=== PATIENT | male | born 1930 | race Caucasian/White ===

== ENCOUNTER → 2018-12-10 | Outpatient (CLI) | payer MEDICARE ==
--- NOTE | 2018-12-10 11:47 | XR ---
Abdomen HISTORY: Kidney stones Frontal view of the abdomen submitted on 2 images and correlated to prior abdomen 02/09/2015 Calcification in left paraspinal location is noted at approximately L3 measuring approximately 14 mm. Overlying bowel gas may obscure detail. Possible punctate left-sided nephrolithiasis and right-sided nephrolithiasis, smaller stones are present overlying the kidneys as compared to prior. At least 2 c alcifications suspected on the left and a single on the right the lower pole levels measuring only ap proximately 2 to 3 mm. Probable vascular calcifications noted within the pelvis. Lamellated calcifica tion present in the right upper quadrant is compatible with gallstone. Postop changes noted to the ri ght hip. There is extensive heterotopic new bone formation which may limit range of motion of the rig ht hip. Degenerative disc changes are noted in the visualized spine. IMPRESSION: Cholelithiasis. Bilateral nephrolithiasis. Additional findings above.
== END | disposition home or self-care (01) ==
LOC: RADXRMAIN 10:36
PROVIDERS: ATTEND Urology
DX: N20.0 Calculus of kidney (principal); K80.20 Calculus of gallbladder without cholecystitis without obstruction
CPT/HCPCS: 74018

== ENCOUNTER → 2019-04-01 | Outpatient (CLI) | payer MEDICARE ==
--- NOTE | 2019-04-01 13:53 | US ---
EXAMINATION TYPE: US kidneys/renal and bladder DATE OF EXAM: 04/01/2019 COMPARISON: CLINICAL HISTORY: N20.1 Calculus of ureter. Hx left renal stone removal x 3-4 weeks ago. No pain at this time. EXAM MEASUREMENTS: Right Kidney: 11.0 x 5.0 x 5.7 cm Left Kidney: 10.9 x 4.4 x 5.1 cm Right Kidney: Upper medial cystic appearing lesion visualized - 1.8 x 1.9 x 1.6 cm Left Kidney: Lower pole complex cystic appearing lesion visualized = 4.3 x 4.0 x 3.0 cm Bladder: distended, wnl Bilateral Jets seen There is no evidence for hydronephrosis at this point in time. No nephrolithiasis is seen. The uri nary bladder is anechoic. Bilateral ureteral jets are seen. IMPRESSION: 1. Exophytic cystic lesion lower pole left kidney with dependent debris or mural nodule. Contrast-enh anced CT is advised for further evaluation. 2. Simple appearing cyst right kidney.
== END | disposition home or self-care (01) ==
LOC: RADUSWWP 10:30
PROVIDERS: ATTEND Urology
DX: N28.1 Cyst of kidney, acquired (principal)
CPT/HCPCS: 76770